=== PATIENT | male | born 1990 | race African-American/Black ===

== ENCOUNTER 2020-11-28 20:00 | Emergency (ER) | payer MEDICAID ==
[~2020-11-28] VITALS: Ht 180.3 cm; Wt 72.7 kg
[2020-11-28 22:30] VITALS: BP 124/60
[2020-11-28] MEDS ORDERED: HYDROCODONE/ACETAMINOPHEN 5-325 MG TABLET PO ONE (22:30)
== END 2020-11-28 22:59 | disposition home or self-care (01) ==
LOC: EMS 20:05
DX: M24.411 Recurrent dislocation, right shoulder (principal); F17.210 Nicotine dependence, cigarettes, uncomplicated
CPT/HCPCS: 99283

== ENCOUNTER 2021-04-27 19:22 | Emergency (ER) | payer MEDICAID ==
[~2021-04-27] VITALS: Ht 180.3 cm; Wt 72.7 kg
[2021-04-27 19:40] VITALS: BP 121/64
== END 2021-04-27 20:10 | disposition home or self-care (01) ==
LOC: EMS 19:22
DX: L03.211 Cellulitis of face (principal)
CPT/HCPCS: 99283; Z7502